=== PATIENT | female | born 1950 | race Hispanic/Latino ===

== ENCOUNTER 2016-05-30 06:12 | Day surgery (SDC) | payer OTHER ==
[2016-05-23 10:52] VITALS: BMI 25.4
[2016-05-30 06:52] LABS: ADD MANUAL DIFF? NO
[2016-05-30 07:07] LABS: BASO # 0.02 K/mm3 (0.0-2.0); BASO % 0.3 % (0.0-3.0); BLOOD UREA NITROGEN 24 mg/dL (7-21); CALCIUM 9.4 mg/dL (8.4-10.5); CARBON DIOXIDE 30 mmol/L (21-33); CHLORIDE 101 mmol/L (98-107); EOS # 0.1 (0.0-0.7); EOS % 1.3 % (1.5-5.0); GFR AFRICAN-AMERICAN > 60; GLUCOSE,RANDOM 182 mg/dL (70-110); GRAN # 4.74 (1.4-6.5); GRAN % 59.4 % (50.0-68.0); HEMATOCRIT 43.6 % (36.0-48.0); LYMPH # 2.5 (1.2-3.4); LYMPH % 31.7 % (22.0-35.0); MEAN CELL VOLUME 88.1 fL (80.0-105.0); MEAN CORPUSCULAR HEMOGLOBIN 30.5 pg (25.0-35.0); MEAN CORPUSCULAR HGB CONC 34.6 g/dl (31.0-37.0); MEAN PLATELET VOLUME 10.1 fl (7.0-11.0); MONO # 0.6 (0.1-0.6); MONO % 7.3 % (1.0-6.0); PLATELET COUNT 176 10^3/uL (120.0-450.0); POTASSIUM 3.7 mmol/L (3.6-5.0); RED CELL DISTRIBUTION WIDTH 13.9 % (11.5-14.5); SODIUM 141 mmol/L (132-148)
[2016-05-30 07:15] LABS: INR 0.94 (0.93-1.08); PARTIAL THROMBOPLASTIN TIME 23.8 Seconds (23.7-30.8)
[2016-05-30 07:27] VITALS: TEMP 97.9
[2016-05-30] MEDS ORDERED: Lidocaine 2% Inj (20ml) ONE (08:03)
[2016-05-30] MEDS ORDERED: Iodixanol 320 MG/ML 200 ML BOTTLE IV ONE (08:04)
[2016-05-30] MEDS ORDERED: Iohexol 350mgl/ml 50 ML ONE (08:04)
[2016-05-30] MEDS ORDERED: Midazolam 2 MG/2 ML VIAL ONE ×2 (08:05→08:53)
[2016-05-30] MEDS ORDERED: Phenylephrine 10 mg/ml Inj ONE (08:37)
--- NOTE | 2016-05-30 09:56 | CARDCATH ---
PROCEDURE DATE: 05/30/2016 HISTORY: The patient is a 65-year-old woman who presents with chest pain. Stress test is abnormal. Her cardiac risk factors include active smoking, COPD, history of a stent in the LAD, diabetes jeremías awad, hypertension and hypercholesterolemia. PROCEDURE: Left heart catheterization, coronary angiography and left ventriculogram. The right femoral artery was cannulated with a 6-Hungarian sheath. There were no complications. Findings on catheterization revealed a left dominant circulation. The RCA revealed diffuse atherosclerosis with an 80% stenosis in the mid portion of the nondominant R CA. The left main artery revealed diffuse atherosclerosis without critical lesions. The LAD and diagonal vessels revealed diffuse atherosclerosis with a patent stent in the proximal/mid portion and a 50% stenosis in the proximal portion. The circumflex artery revealed a 60% stenosis in the ostium of the circumflex artery. The rest of the circumflex and obtuse marginal branches revealed diffuse atherosclerosis. LV function was visualized in the TORRES projection. In the TORRES projection, wall motion was within norm al limits. Estimated ejection fraction is 50-55%. Manual compression was used to close the femoral artery site because of peripheral vascular disease. The patient tolerated the procedure well. SUMMARY: The procedure revealed a patent stent in the left anterior descending with diffuse atherosc lerosis in the coronary tree including an 80% stenosis in the nondominant right coronary artery and a 50% stenosis in the proximal left anterior descending as well as a 60% stenosis in the ostium of the circumflex artery. Given these findings, the patient's treatment needs to be medical therapy with an emphasis on cessati on of smoking. I have asked the patient to follow up with Dr. Vera for continued cardiac risk r eduction program. Alexandro Mercado MD cc: [phone] TT: 05/30/2016 09:55:39 vt
[2016-05-30 10:17] VITALS: RESP 20
[2016-05-30] MEDS ORDERED: Sodium Chloride 0.9% 500 ML IV SCH (10:30)
--- NOTE | 2016-05-30 12:45 | CARD ---
APPROVED REPORT EKG Measurement Heart [id number] <Conclusion> Normal sinus rhythm RSR' or QR pattern in V1 suggests right ventricular conduction delay Nonspecific ST abnormality No change
[2016-05-30 15:06] VITALS: PULSE 72
[2016-05-30 16:35] VITALS: BP 130/68; O2SAT 94
== END 2016-05-30 16:36 | disposition home or self-care (01) ==
LOC: CATH 06:12
PROVIDERS: ATTEND Internal Medicine Cardiovascular Disease
DX: I25.10 Atherosclerotic heart disease of native coronary artery without angina pectoris (principal); E11.9 Type 2 diabetes mellitus without complications; I10 Essential (primary) hypertension; E78.00 Pure hypercholesterolemia, unspecified; R07.9 Chest pain, unspecified; R94.39 Abnormal result of other cardiovascular function study; Z95.5 Presence of coronary angioplasty implant and graft